=== PATIENT | female | born 2000 | race Two or more races ===

== ENCOUNTER → 2023-10-14 | Outpatient (CLI) | payer OTHER | END | disposition home or self-care (01) | LOC: PRENATAL 15:50 | PROVIDERS: ATTEND Obstetrics & Gynecology Maternal & Fetal Medicine | DX: O35.3XX0 Maternal care for (suspected) damage to fetus from viral disease in mother, not applicable or unspecified (principal); O44.00 Complete placenta previa NOS or without hemorrhage, unspecified trimester; Z3A.25 25 weeks gestation of pregnancy ==

== ENCOUNTER 2023-12-07 12:49 | Outpatient (CLI) | payer OTHER | END 2023-12-07 12:51 | disposition home or self-care (01) | LOC: PRENATAL 12:49 | PROVIDERS: ATTEND Obstetrics & Gynecology Maternal & Fetal Medicine | DX: O26.849 Uterine size-date discrepancy, unspecified trimester (principal); O36.8199 Decreased fetal movements, unspecified trimester, other fetus; Z3A.33 33 weeks gestation of pregnancy ==

== ENCOUNTER 2023-12-20 14:08 | Inpatient (IN) | payer OTHER ==
[~2023-12-20] VITALS: Ht 167.6 cm; Wt 62.1 kg
[2023-12-20] MEDS ORDERED: RINGERS SOLUTION,LACTATED 1,000 ML IV SCH (14:15)
[2023-12-20] MEDS ORDERED: PRENATAL CAPLE1 EAC1 PO (14:22)
[2023-12-20] MEDS ORDERED: AMPICILLIN SODIUM 2,000 MG VIAL IV ONE (14:30)
[2023-12-20] MEDS ORDERED: BETAMETHASONE ACETATE,SOD PHOS 30 MG/5 ML ML IM SCH (14:30)
[2023-12-20 14:36] LABS: HEMATOCRIT 28.4 % (36.0-45.00); HEMOGLOBIN 9.8 g/dL (12.0-15.00); MEAN CELL VOLUME 92.7 fL (80.00-100.00); MEAN CORPUSCULAR HGB CONC 34.5 g/dl (32.0-36.0); PLATELET COUNT 192 K/uL (150-450); RED BLOOD COUNT 3.07 M/uL (4.00-6.00); RED CELL DISTRIBUTION WIDTH 12.2 % (11.5-14.5)
[2023-12-20 15:16] LABS: INR < 0.93; PARTIAL THROMBOPLASTIN TIME 27.3 SECONDS (22.0-34.0); PROTHROMBIN TIME 9.6 SECONDS (9.0-11.5)
[2023-12-20 15:20] LABS: ALBUMIN 2.4 gm/dL (3.4-5.0); BILIRUBIN TOTAL 0.24 mg/dL (0.3-1.2); CALCIUM 8.7 mg/dL (8.5-10.1); CREATININE SERUM 0.59 mg/dL (0.55-1.02); GFR 127.46; GLOBULINA 3.2 G/DL (2.4-3.5); POTASSIUM 3.92 mEq/L (3.5-5.1); TOTAL PROTEIN 5.6 gm/dL (6.4-8.2)
[2023-12-20 17:14] LABS: URINE APPEARANCE Clear; URINE BILIRRUBIN Negative (NEGATIVE); URINE BLOOD Large; URINE COLOR Yellow; URINE GLUCOSE Negative (NEGATIVE); URINE LEUKOCYTE Negative; URINE NITRATE Negative
[2023-12-20 17:18] LABS: URINE BACTERIA 55.4 uL (0.0-1933); URINE RBC 1941.4 uL (0.0-20.8); URINE WBC 9.7 uL (0.0-23.2)
[2023-12-20 17:33] LABS: URINE PROTEIN 100 (NEGATIVE)
[2023-12-20] MEDS ORDERED: AMPICILLIN SODIUM 1,000 MG VIAL IV SCH (21:00)
[2023-12-21] MEDS ORDERED: SOD FERRIC GLUC COMPLX/SUCROSE 125 MG in 0.9 % SODIUM CHLORIDE 100 ML IV ONE (09:30)
[2023-12-21] MEDS ORDERED: PNV,CALCIUM 72/IRON/FOLIC ACID 1 TAB TABLET PO SCH (10:00)
[2023-12-21] MEDS ORDERED: BETAMETHASONE ACETATE,SOD PHOS 30 MG/5 ML ML ONE (15:13)
[2023-12-22 11:58] LABS: HEMATOCRIT 25.8 % (36.0-45.00); MEAN CELL VOLUME 91.7 fL (80.00-100.00); MEAN CORPUSCULAR HEMOGLOBIN 31.3 pg (27.00-32.0); MEAN CORPUSCULAR HGB CONC 34.2 g/dl (32.0-36.0); PLATELET COUNT 173 K/uL (150-450); RED BLOOD COUNT 2.81 M/uL (4.00-6.00); RED CELL DISTRIBUTION WIDTH 12.4 % (11.5-14.5)
[2023-12-22 12:01] LABS: HEMOGLOBIN 8.8 g/dL (12.0-15.00)
[2023-12-22 12:17] LABS: ALBUMIN 2.4 gm/dL (3.4-5.0); BILIRUBIN TOTAL 0.14 mg/dL (0.3-1.2); CALCIUM 8.8 mg/dL (8.5-10.1); CREATININE SERUM 0.77 mg/dL (0.55-1.02); GFR 93.74; GLOBULINA 3.1 G/DL (2.4-3.5); POTASSIUM 4.04 mEq/L (3.5-5.1); TOTAL PROTEIN 5.5 gm/dL (6.4-8.2)
[2023-12-22] MEDS ORDERED: LABETALOL HCL 100 MG/20 ML ML ONE (12:47)
[2023-12-22] MEDS ORDERED: MAGNESIUM SULFATE IN WATER 4 GM/100 ML PIGGYBACK IV ONE (12:48)
[2023-12-22 12:49] LABS: PH,URINE 6.5 (5.0-8.0); URINE APPEARANCE Clear; URINE BILIRRUBIN Negative (NEGATIVE); URINE BLOOD Small; URINE COLOR Yellow; URINE GLUCOSE Negative (NEGATIVE); URINE LEUKOCYTE Negative; URINE NITRATE Negative; URINE UROBILINOGEN 0.2 E.U./dl
[2023-12-22 12:54] LABS: URINE EPITHELIAL CELLS 77.3 uL (0.0-38.8); URINE RBC 4.3 uL (0.0-20.8); URINE WBC 4.1 uL (0.0-23.2)
[2023-12-22] MEDS ORDERED: LABETALOL HCL 100 MG/20 ML ML IV ONE (13:00)
[2023-12-22] MEDS ORDERED: MAGNESIUM SULFATE IN WATER 4 GM/100 ML PIGGYBACK IV SCH (13:00)
[2023-12-22] MEDS ORDERED: MAGNESIUM SULFATE IN WATER 0.04 GM/ML IV.SOLN IV SCH ×2 (13:00→18:45)
[2023-12-22 13:19] LABS: URINE PROTEIN 300 (NEGATIVE)
[2023-12-22] MEDS ORDERED: AMPICILLIN SODIUM 2,000 MG VIAL IV ONE (13:30)
[2023-12-22] MEDS ORDERED: AMPICILLIN SODIUM 2,000 MG VIAL ONE (13:37)
[2023-12-22] MEDS ORDERED: OXYTOCIN 20 UNITS/500ML RL PIGGYBAG IV SCH (13:45)
[2023-12-22] MEDS ORDERED: AMPICILLIN SODIUM 1,000 MG VIAL IV SCH (17:00)
[2023-12-22] MEDS ORDERED: CEFAZOLIN SODIUM 1,000 MG VIAL IV ONE (17:00)
[2023-12-22] MEDS ORDERED: OXYTOCIN 10 UNITS/ML VIAL ONE ×3 (17:05→19:15)
[2023-12-22] MEDS ORDERED: ERYTHROMYCIN BASE 3.5 GM OINT...G. OP ONE (17:05)
[2023-12-22] MEDS ORDERED: CEFAZOLIN SODIUM 1,000 MG VIAL ONE (17:25)
[2023-12-22] MEDS ORDERED: OXYTOCIN 1,000 ML IV SCH (18:30)
[2023-12-22] MEDS ORDERED: ONDANSETRON HCL 2 MG/ML VIAL IV PRN (18:45)
[2023-12-22] MEDS ORDERED: MEPERIDINE HCL/PF 25 MG/ML VIAL IV PRN (18:45)
[2023-12-22] MEDS ORDERED: PROMETHAZINE HCL 25 MG/ML AMPUL IV PRN (18:45)
[2023-12-22] MEDS ORDERED: MAGNESIUM SULFATE IN WATER 0.04 GM/ML IV.SOLN IV ONE (19:11)
[2023-12-22] MEDS ORDERED: ENALAPRILAT DIHYDRATE 1.25 MG/ML VIAL IV ONE (20:13)
[2023-12-22] MEDS ORDERED: FAMOTIDINE/PF 20 MG/2 ML VIAL IV SCH (21:00)
[2023-12-22 21:10] LABS: MEAN CELL VOLUME 90.5 fL (80.00-100.00); MEAN CORPUSCULAR HGB CONC 34.1 g/dl (32.0-36.0); PLATELET COUNT 140 K/uL (150-450); RED BLOOD COUNT 2.39 M/uL (4.00-6.00); RED CELL DISTRIBUTION WIDTH 12.6 % (11.5-14.5)
[2023-12-22 21:15] LABS: HEMATOCRIT 21.6 % (36.0-45.00); MEAN CORPUSCULAR HEMOGLOBIN 30.9 pg (27.00-32.0)
[2023-12-22 21:16] LABS: HEMOGLOBIN 7.4 g/dL (12.0-15.00)
[2023-12-23 04:03] LABS: HEMATOCRIT 26.5 % (36.0-45.00); MEAN CELL VOLUME 89.3 fL (80.00-100.00); MEAN CORPUSCULAR HGB CONC 34.5 g/dl (32.0-36.0); RED BLOOD COUNT 2.97 M/uL (4.00-6.00); RED CELL DISTRIBUTION WIDTH 12.9 % (11.5-14.5)
[2023-12-23 04:10] LABS: MEAN CORPUSCULAR HEMOGLOBIN 30.6 pg (27.00-32.0); PLATELET COUNT 112 K/uL (150-450)
[2023-12-23 04:11] LABS: HEMOGLOBIN 9.1 g/dL (12.0-15.00)
[2023-12-23] MEDS ORDERED: MORPHINE SULFATE 4 MG/ML CARTRIDGE IV PRN (06:15)
[2023-12-23 08:25] LABS: ALBUMIN 1.9 gm/dL (3.4-5.0); BILIRUBIN TOTAL 0.4 mg/dL (0.3-1.2); CALCIUM 6.7 mg/dL (8.5-10.1); CREATININE SERUM 0.56 mg/dL (0.55-1.02); GFR 135.37; GLOBULINA 2.6 G/DL (2.4-3.5); POTASSIUM 3.77 mEq/L (3.5-5.1); TOTAL PROTEIN 4.5 gm/dL (6.4-8.2)
[2023-12-23 08:34] LABS: MAGNESIUM 5.3 mg/dL (1.8-2.4)
[2023-12-23] MEDS ORDERED: SIMETHICONE 125 MG CAPSULE PO SCH (12:46)
[2023-12-23] MEDS ORDERED: DOCUSATE SODIUM 100MG CAP PO SCH (12:46)
[2023-12-23] MEDS ORDERED: FERROUS SULFATE 325 MG TABLET.EC PO SCH (12:47)
[2023-12-23] MEDS ORDERED: OxyCODONE HCL/APAP UD (PERCOCET) PO PRN (13:00)
[2023-12-23] MEDS ORDERED: MAGNESIUM SULFATE IN WATER 500 ML IV SCH ×2 (13:00→18:45)
[2023-12-23 15:23] LABS: HEMATOCRIT 28.9 % (36.0-45.00); HEMOGLOBIN 9.9 g/dL (12.0-15.00); MEAN CELL VOLUME 90.6 fL (80.00-100.00); MEAN CORPUSCULAR HEMOGLOBIN 30.9 pg (27.00-32.0); MEAN CORPUSCULAR HGB CONC 34.1 g/dl (32.0-36.0); RED BLOOD COUNT 3.19 M/uL (4.00-6.00); RED CELL DISTRIBUTION WIDTH 13.2 % (11.5-14.5)
[2023-12-23 15:31] LABS: PLATELET COUNT 88 K/uL (150-450)
[2023-12-23 15:45] LABS: ALBUMIN 2.1 gm/dL (3.4-5.0); BILIRUBIN TOTAL 0.52 mg/dL (0.3-1.2); CALCIUM 7.1 mg/dL (8.5-10.1); CREATININE SERUM 0.65 mg/dL (0.55-1.02); GFR 113.98; GLOBULINA 2.9 G/DL (2.4-3.5); POTASSIUM 3.74 mEq/L (3.5-5.1)
[2023-12-23 16:09] LABS: MAGNESIUM 4.6 mg/dL (1.8-2.4)
[2023-12-23 20:59] LABS: HEMATOCRIT 28.7 % (36.0-45.00); HEMOGLOBIN 9.9 g/dL (12.0-15.00); MEAN CELL VOLUME 90.5 fL (80.00-100.00); MEAN CORPUSCULAR HEMOGLOBIN 31.2 pg (27.00-32.0); MEAN CORPUSCULAR HGB CONC 34.4 g/dl (32.0-36.0); RED BLOOD COUNT 3.18 M/uL (4.00-6.00)
[2023-12-23 21:04] LABS: PLATELET COUNT 72 K/uL (150-450)
[2023-12-23 21:28] LABS: ALBUMIN 2.1 gm/dL (3.4-5.0); BILIRUBIN TOTAL 0.56 mg/dL (0.3-1.2); CREATININE SERUM 0.67 mg/dL (0.55-1.02); GFR 110.06; GLOBULINA 2.8 G/DL (2.4-3.5); POTASSIUM 3.68 mEq/L (3.5-5.1); TOTAL PROTEIN 4.9 gm/dL (6.4-8.2)
[2023-12-23 21:31] LABS: D DIMER 33.91 MG/L
[2023-12-24 07:34] LABS: HEMATOCRIT 25.3 % (36.0-45.00); MEAN CELL VOLUME 88.7 fL (80.00-100.00); MEAN CORPUSCULAR HGB CONC 35.3 g/dl (32.0-36.0); RED BLOOD COUNT 2.85 M/uL (4.00-6.00); RED CELL DISTRIBUTION WIDTH 13.4 % (11.5-14.5)
[2023-12-24 07:39] LABS: HEMOGLOBIN 8.9 g/dL (12.0-15.00); MEAN CORPUSCULAR HEMOGLOBIN 31.2 pg (27.00-32.0); PLATELET COUNT 57 K/uL (150-450)
[2023-12-24 07:52] LABS: BILIRUBIN TOTAL 0.41 mg/dL (0.3-1.2); CALCIUM 7.7 mg/dL (8.5-10.1); CREATININE SERUM 0.56 mg/dL (0.55-1.02); GFR 135.37; GLOBULINA 2.7 G/DL (2.4-3.5); POTASSIUM 4.02 mEq/L (3.5-5.1); TOTAL PROTEIN 4.7 gm/dL (6.4-8.2)
[2023-12-24] MEDS ORDERED: ACETAMINOPHEN 325 MG TABLET PO PRN (09:00)
[2023-12-24] MEDS ORDERED: FERROUS SULFATE 325 MG TABLET.EC PO SCH (09:00)
[2023-12-24] MEDS ORDERED: OxyCODONE HCL/APAP UD (PERCOCET) PO PRN (09:15)
[2023-12-24 14:24] LABS: HEMATOCRIT 25.3 % (36.0-45.00); MEAN CELL VOLUME 91.2 fL (80.00-100.00); MEAN CORPUSCULAR HEMOGLOBIN 31.4 pg (27.00-32.0); MEAN CORPUSCULAR HGB CONC 34.3 g/dl (32.0-36.0); RED BLOOD COUNT 2.77 M/uL (4.00-6.00); RED CELL DISTRIBUTION WIDTH 13.2 % (11.5-14.5)
[2023-12-24 14:25] LABS: HEMOGLOBIN 8.7 g/dL (12.0-15.00); PLATELET COUNT 65 K/uL (150-450)
[2023-12-25 02:35] LABS: HEMATOCRIT 24.8 % (36.0-45.00); HEMOGLOBIN 8.6 g/dL (12.0-15.00); MEAN CELL VOLUME 91.2 fL (80.00-100.00); MEAN CORPUSCULAR HEMOGLOBIN 31.6 pg (27.00-32.0); MEAN CORPUSCULAR HGB CONC 34.5 g/dl (32.0-36.0); RED BLOOD COUNT 2.72 M/uL (4.00-6.00); RED CELL DISTRIBUTION WIDTH 13.3 % (11.5-14.5)
[2023-12-25 02:36] LABS: PLATELET COUNT 67 K/uL (150-450)
[2023-12-25 02:44] LABS: BILIRUBIN TOTAL 0.26 mg/dL (0.3-1.2); CREATININE SERUM 0.54 mg/dL (0.55-1.02); GFR 141.17; GLOBULINA 2.7 G/DL (2.4-3.5); POTASSIUM 3.99 mEq/L (3.5-5.1); TOTAL PROTEIN 4.7 gm/dL (6.4-8.2)
[2023-12-26 07:31] LABS: ALBUMIN 2.4 gm/dL (3.4-5.0); BILIRUBIN TOTAL 0.3 mg/dL (0.3-1.2); CALCIUM 8.6 mg/dL (8.5-10.1); CREATININE SERUM 0.46 mg/dL (0.55-1.02); GFR 169.87; GLOBULINA 3.1 G/DL (2.4-3.5); POTASSIUM 4.27 mEq/L (3.5-5.1); TOTAL PROTEIN 5.5 gm/dL (6.4-8.2)
[2023-12-26 09:16] LABS: HEMATOCRIT 25.9 % (36.0-45.00); MEAN CORPUSCULAR HEMOGLOBIN 31.9 pg (27.00-32.0); MEAN CORPUSCULAR HGB CONC 34.6 g/dl (32.0-36.0); RED BLOOD COUNT 2.82 M/uL (4.00-6.00); RED CELL DISTRIBUTION WIDTH 13.2 % (11.5-14.5)
[2023-12-26 09:25] LABS: PLATELET COUNT 93 K/uL (150-450)
== END 2023-12-26 13:48 | disposition home or self-care (01) | DRG 787 ==
LOC: LDR 14:08 → OB/GYN 14:08
PROVIDERS: ADMIT General Practice; ATTEND General Practice
PROC: 4A1HXCZ Monitoring of Products of Conception, Cardiac Rate, External Approach (ICD-10-PCS; 2023-12-20)
PROC: BY4FZZZ Ultrasonography of Third Trimester, Single Fetus (ICD-10-PCS; 2023-12-20)
PROC: BU4CZZZ Ultrasonography of Uterus and Ovaries (ICD-10-PCS; 2023-12-20)
PROC: 30233N1 Transfusion of Nonautologous Red Blood Cells into Peripheral Vein, Percutaneous Approach (ICD-10-PCS; 2023-12-22)
PROC: 10D00Z1 Extraction of Products of Conception, Low, Open Approach (ICD-10-PCS; principal; 2023-12-22 16:15)
DX: O14.14 Severe pre-eclampsia complicating childbirth (principal); O99.02 Anemia complicating childbirth; D62 Acute posthemorrhagic anemia; O67.8 Other intrapartum hemorrhage; O72.1 Other immediate postpartum hemorrhage; O60.14X0 Preterm labor third trimester with preterm delivery third trimester, not applicable or unspecified; O60.03 Preterm labor without delivery, third trimester; O26.843 Uterine size-date discrepancy, third trimester; O36.8130 Decreased fetal movements, third trimester, not applicable or unspecified; O26.853 Spotting complicating pregnancy, third trimester; Z3A.34 34 weeks gestation of pregnancy; Z37.0 Single live birth; Z20.822 Contact with and (suspected) exposure to COVID-19